=== PATIENT | male | born 1995 | race Caucasian/White ===

== ENCOUNTER 2021-03-28 10:57 | Emergency (ER) | payer OTHER ==
[2021-03-28] MEDS ORDERED: MEDROL DOSEPAK 24 MG PO (13:21)
[2021-03-28] MEDS ORDERED: IBUPROFEN800 MG PO (13:21)
[2021-03-28] MEDS ORDERED: HYDROCODON-ACE1 EAC4 PO (13:25)
== END 2021-03-28 13:38 | disposition home or self-care (01) ==
LOC: ER1 10:57
DX: M51.16 Intervertebral disc disorders with radiculopathy, lumbar region (principal); F17.210 Nicotine dependence, cigarettes, uncomplicated; Z79.899 Other long term (current) drug therapy
CPT/HCPCS: 71045; 72131; 96372; 99284; J1885

== ENCOUNTER 2021-10-10 12:19 | Emergency (ER) | payer OTHER ==
[~2021-10-10 12:19] MED LIST: HYDROCODON-ACE1 EAC4 PO; IBUPROFEN800 MG PO; MEDROL DOSEPAK 24 MG PO
[2021-10-10 13:01] LABS: HEMOGLOBIN 16.1 gm/dl (14.0-17.5); RED BLOOD COUNT 4.97 M/UL (4.20-5.50)
[2021-10-10 13:28] LABS: BUN/CREATININE RATIO 11 (0-10)
[2021-10-10] MEDS ORDERED: MEDROL DOSEPAK 24 MG PO (14:57)
== END 2021-10-10 15:41 | disposition home or self-care (01) ==
LOC: ER1 12:19
PROVIDERS: Physician Assistant
DX: M54.41 Lumbago with sciatica, right side (principal); F17.200 Nicotine dependence, unspecified, uncomplicated
CPT/HCPCS: 80053; 81001; 83690; 85025; 99284; Q9967